=== PATIENT | female | born 1950 | race Caucasian/White ===

== ENCOUNTER → 2016-04-28 | Day surgery (SDC) | payer MEDICARE ==
[~2016-04-28] MED LIST: AEROBID7 GM; ALBUTEROL 0.5ML INH; ALBUTEROL MININEB NEB; ALBUTEROL17 GM; ALBUTEROL17 GM INH; BACTRIM DS TABL1 TAB PO; BENZONATATE PO; CIPRO PO; HYDROCODON-ACE1 EAC7; HYDROCODON-ACE1 EAC9 PO; KEPPRA500 M1 PO; KEPPRA500 M2 PO; LEVAQUIN PO; LEVOFLOXACIN500 MG PO; MEDROL DOSEPAK4 MG PO; MILK OF MAGNESIA PO; MOBIC15 MG PO; PHENERGAN W/CO120 ML PO; PREDNISONE PO; PROBIOTIC1 EAC1 PO; RESTORE PO; SPIRIVA18 MCG INH; SULFAMETHOXAZOL1 TA4 PO; ULTRAM PO; VICODIN 5/500 T1 TAB PO; ZITHROMAX PO; [UNRECOGNIZED DRUG - OTHER] PO
--- NOTE | ~2016-04-28 | OR ---
Unit #: [id number] #: [id number] Patient: SHUKRI REESE [id number] [address] [address] [id number] O MR#: [id number] NAME: SHUKRI REESE ROOM: Date of Procedure: 04/28/2016 Admission Date: 04/28/2016 Surgeon: Adriel Benites M.D. : 1950 Attending Physician: Adriel Benites M.D. Primary Care Physician: Jeremy Saucedo M.D. OPERATIVE REPORT PROCEDURE PERFORMED Colonoscopy to cecum with biopsies. INDICATIONS FOR PROCEDURE A 65-year-old female with family history of colon cancer in sister. She was Cologuard test positive also. MEDICATIONS Monitored anesthesia. POSTOPERATIVE FINDINGS 1. Flat mass behind the ileocecal valve in the cecal site. Multiple biopsies taken suspicious for malignancy. 2. Diverticulosis. 3. Internal hemorrhoids. 4. Rest of the colonic mucosa was normal. PLAN Follow up on the pathology report, most likely need a right hemicolectomy. DESCRIPTION OF PROCEDURE The patient was explained of the procedure, risks, and benefits along with risks and benefits of anesthesia. She was brought to the endoscopy room. Propofol anesthesia was given. Rectal exam was done, which was normal. Colonoscope was lubricated, passed up the rectum, advanced under direct vision all the way to the cecum. Cecum was identified by ileocecal valve and appendiceal orifice. There was a mass right behind the ileocecal valve not clearly visualized. Multiple biopsies taken from this area. The scope was then carefully withdrawn. Rest of the colonic mucosa was normal in appearance. I retroflexed in the rectum, small hemorrhoids seen. Scope was gently pulled out. She tolerated it well. Dictated by... Jeffry Sanchez/colin TD: 04/29/2016 02:05 JOB #: [id number] Unit #: [id number] #: [id number] Patient: SHUKRI REESE OPERATIVE REPORT X Adriel Benites MD X PROCEDURE OPERATIVE NOTE
== END | disposition home or self-care (01) ==
LOC: COPS 09:10
DX: Z12.11 Encounter for screening for malignant neoplasm of colon (principal); C18.0 Malignant neoplasm of cecum; K57.30 Diverticulosis of large intestine without perforation or abscess without bleeding; K64.8 Other hemorrhoids; Z80.0 Family history of malignant neoplasm of digestive organs; J44.9 Chronic obstructive pulmonary disease, unspecified; Z88.2 Allergy status to sulfonamides; Z88.1 Allergy status to other antibiotic agents
CPT/HCPCS: 88305

== ENCOUNTER → 2016-05-06 | Outpatient (CLI) | payer MEDICARE ==
--- NOTE | ~2016-05-06 | CR63 ---
[facility] A Service of [facility] RADIOLOGY TEXT RESULTS PATIENT: SHUKRI REESE LOCATION: [facility] : [birth year] UNIT #: [id number] AGE: [address]: Mayito Jaeger III, MD SEX: F ORDER DR: [id number] [facility] [address] [place], [place] [address] [id number] O MR#: [id number] Acc #: [id number] NAME: SHUKRI REESE : 1950 SEX: F STUDY DATE/TIME: 05/06/2016 12:22 UNIT: [facility] ROOM: STUDY DESCRIPTION: CR Chest 2 View Attending Physician: Mayito Jaeger III, M.D. Ordering Physician: Mayito Jaeger III, M.D. Primary Care Physician: Adriel Benites M.D. MEDICAL IMAGING REPORT This report is preliminary unless electronic signature is present EXAM Chest, 05/06/2016 HISTORY 65-year-old female patient with history of colon cancer. Patient for right colectomy. History of cough, short of breath. COMPARISON Portable chest, 02/11/2016 FINDINGS Two-view chest demonstrates normal stable heart size. Hilar structures and mediastinal contours are preserved. Small nodular opacity right upper lobe laterally appears unchanged. Prominent right cardiophrenic fat pad. Lungs appear otherwise expanded and clear. IMPRESSION No acute chest finding. Dictated by... Asad Cai M.D. THIS IS AN ELECTRONICALLY VERIFIED REPORT Asad Cai M.D. at 05/06/2016 3:02 PM Eli TD: 05/06/2016 13:22 JOB #: [id number] MEDICAL IMAGING REPORT Page 1 of 1 COPY
--- NOTE | ~2016-05-06 | EKG ---
PATIENT: SHUKRI REESE UNIT #: [id number] Ventricular Rate: 74 BPM Atrial Rate: 74 BPM P-R Interval: 160 ms QRS Duration: 70 ms Q-T Interval: 412 ms QTC Calculation(Bezet): 457 ms Calculated R Mounds: 40 degrees Calculated T Mounds: 17 degrees Diagnosis Line: Normal sinus rhythm Diagnosis Line: Low voltage QRS Diagnosis Line: Otherwise normal ECG Diagnosis Line: When compared with ECG of 04-JAN-2016 17:21, Diagnosis Line: No significant change was found Diagnosis Line: Confirmed by MALLORY WALKER MD ([id number]) on 05/07/2016 Diagnosis Line: 9:35:54 AM INTERPRETING MD: AARON FULTON
[2016-05-06 11:13] LABS: HEMATOCRIT 37.6 % (35.0-45.0); HEMOGLOBIN 12.4 gm/dL (12.0-16.0); MEAN CELL VOLUME 90.1 FL (83-96); MEAN CORPUSCULAR HEMOGLOBIN 29.7 PG (28-34); MEAN PLATELET VOLUME 7.2 FL (6.5-11.5); RED BLOOD COUNT 4.17 X10e (3.90-5.30); RED CELL DISTRIBUTION WIDTH 13.1 % (11.0-15.5); WHITE BLOOD COUNT 6.3 X10e3 (4.0-10.5)
[2016-05-06 11:54] LABS: BILIRUBIN,TOTAL 0.4 mg/dL (0.2-2.0); BUN/CREATININE RATIO 12.5; CALCIUM SERUM 9.4 mg/dL (8.4-10.2); CREATININE SERUM 0.8 mg/dL (0.6-1.4); GLOM FILT RATE Estimated 76.9 mL/min (>60); POTASSIUM 4.2 mmol/L (3.5-5.1)
== END | disposition home or self-care (01) ==
LOC: CAMB 10:42
PROVIDERS: Surgery
DX: Z01.818 Encounter for other preprocedural examination (principal); C18.9 Malignant neoplasm of colon, unspecified
CPT/HCPCS: 36415; 71020; 74177; 80053; 82378; 85027; 93005; Q9967

== ENCOUNTER 2016-05-11 06:38 | Inpatient (IN) | payer MEDICARE ==
--- NOTE | ~2016-05-11 | OR ---
Unit #: [id number] #: [id number] Patient: SHUKRI REESE [id number] [facility]. [place] [id number] [facility]. [place], [place] [address] [id number] Jose MR#: [id number] NAME: SHUKRI REESE ROOM: 47 Date of Procedure: 05/11/2016 Admission Date: 05/11/2016 Surgeon: Mayito Jaeger III, M.D. : 1950 Attending Physician: Mayito Jaeger III, M.D. Primary Care Physician: Adriel Benites M.D. OPERATIVE REPORT PREOPERATIVE DIAGNOSIS Cecal mass. POSTOPERATIVE DIAGNOSIS Cecal mass. PROCEDURE PERFORMED Ileocolic resection with anastomosis. AUTO LOCATOR Dr. Keaton Gutierrez. SPECIMEN Sent to pathology. ESTIMATED BLOOD LOSS Minimal. DRAINS None. COMPLICATIONS None apparent. INDICATIONS FOR PROCEDURE This is a 65-year-old lady, who underwent colonoscopy within the last couple of weeks and was found to have a cecal mass. She has a family history of colon cancer and she is here today for resection. DESCRIPTION OF PROCEDURE After consent was obtained, the patient was brought to the operating room and placed in the supine position. General anesthetic was administered. Her abdomen was prepped and draped in standard surgical fashion. I made a midline laparotomy and entered into the peritoneal cavity without any difficulty. She had a very mobile floppy cecum and I was able to easily identify the abnormality. There was a cecal mass and did not have any outward appearance of extension beyond the wall of the colon. I mobilized the right colon by scoring the lateral peritoneal attachments. Once this was done, I fired a EWA 75 stapler proximal to the ileocecal valve. I then had a generous margin distal to the tumor and fired a load across the upper mid ascending colon. I then took down all the mesenteric attachments with Chipley clamps and 0 silk ties. Once this specimen Unit #: [id number] #: [id number] Patient: SHUKRI REESE was removed, it was sent to pathology for permanent. I then performed a epwj-pv-tgpv stapled anastomosis with a EWA 75 stapler. There was some bleeding from the staple line internally. This was corrected with interrupted 3-0 Vicryl in a leverb-hh-lxwdy sutures. Once I had good hemostasis along the staple line, I then closed the common opening with interrupted 2-0 silk Gambee stitches with some intervening Lembert sutures. I then closed the common mesenteric defect with interrupted 2-0 silk qvbxds-pa-gakix suture. I irrigated and had excellent hemostasis. She also had some note of gallstones seen on her CT scan. I did evaluate the gallbladder and it appeared normal without any signs of inflammation. I did not see any other tumor deposits. I then closed the midline fascia with interrupted #1 Vicryl sutures. All needle, sponge, and instrument counts were correct x2 and hemostasis was excellent. The skin edges were reapproximated with stapling device. She tolerated the procedure without any problems and returned to recovery room in stable condition. Dictated by... Mayito Jaeger III, M.D. VCL/colin TD: 05/12/2016 07:36 JOB #: [id number] CC: Adriel Benites M.D. OPERATIVE REPORT Page 1 of 1 X Mayito Jaeger III, MD PROCEDURE OPERATIVE NOTE
--- NOTE | ~2016-05-11 | CO ---
Unit #: [id number] #: [id number] Patient: SHUKRI REESE [id number] [address] [address] [id number] I MR#: [id number] NAME: SHUKRI REESE ROOM: 476 Age: 65 Sex: F Admission Date: 05/11/2016 : 1950 Attending Physician: Mayito Jaeger III, M.D. Primary Care Physician: Adriel Benites M.D. CONSULTATION REPORT CHIEF COMPLAINT Colon cancer, [id number], stage IIIB and right lung nodule. HISTORY OF PRESENT ILLNESS This is a 65-year-old female who never had a colonoscopy. Her sister of colon cancer at the age of 65. Based on advice from a family member she had a colonoscopy. It was abnormal. Patient had a CT of the abdomen and pelvis on 05/06/2016. There is a 2.3 cm segmental thickening of the ileocecal junction. Patient had right hemicolectomy and resection of parts of the ileum. Pathology is positive for adenocarcinoma. The tumor was invading into the surface of the (1) peritoneum. It is T4. Lymph nodes 2/15 positive for metastatic disease. It is [id number], stage IIIB. She has recovered from the surgery, going home, has a sister at the bedside asking multiple questions about the prognosis and further treatment. Patient had the CT of the chest on February 26, 2016. There is about 1 x 1 cm right lung base nodule. REVIEW OF SYSTEMS CONSTITUTIONAL: No fever, no chills, no sweats, no weight loss. EYES: No visual symptoms. EARS, NOSE AND THROAT: There is no runny nose or sore throat or difficulty hearing. CARDIOVASCULAR: No chest pain. No shortness of breath. No palpitations. No orthopnea. No PND. RESPIRATORY: No cough. No wheezing. No hemoptysis. GASTROINTESTINAL: No nausea, vomiting, diarrhea, constipation, hematochezia or melena. GENITOURINARY: No urinary frequency, hesitancy or urgency. No blood in the urine. MUSCULOSKELETAL: No muscle or joint pain. NEUROLOGIC: No headache. No numbness or tingling. No weakness. No seizure. PSYCHIATRIC: No anxiety, depression or mood disturbance. ENDOCRINE: No excessive urination or thirst. DERMATOLOGIC: No rash or change in the skin. ALLERGIC/IMMUNOLOGIC: No symptoms. HEMATOLOGIC/LYMPHATIC: Denies any symptoms. PAST MEDICAL HISTORY COPD, seizure disorder, now stage IIIB colon cancer, right-sided, Unit #: [id number] #: [id number] Patient: SHUKRI REESE resected. ALLERGIES Sulfa. 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 PAST SURGICAL HISTORY Now right hemicolectomy, surgery around her right ear, possible hysterectomy she is not sure. She has three children. FAMILY HISTORY Father lung cancer. Mother had pancreatic cancer. Sister had colon cancer, of it age 65. PHYSICAL EXAMINATION GENERAL: Patient is comfortable. ECOG is 0. The patient is pleasant. VITAL SIGNS: Afebrile, O2 sat room air 94%, pulse 89, respiratory rate 18, blood pressure 105/64. HEENT: Moist mucosa. Pupils equally reactive to light. Extraocular muscles intact. Sclerae anicteric. No obvious bleeding from nasal mucosa or oral mucosa. Scalp normal. Hearing normal. NECK: No JVD. No lymphadenopathy. LYMPHATIC/HEMATOLOGIC: There is no palpable adenopathy in the neck, axilla or inguinal area. CARDIOVASCULAR: S1, S2. Regular rate and rhythm. No S3 or S4. RESPIRATORY: Chest symmetrical, normal. Clear to auscultation bilaterally. No wheezes, no rales, no rhonchi. No dullness to percussion. ABDOMEN/GASTROINTESTINAL: Abdomen is soft, nontender, nondistended. No hepatosplenomegaly. EXTREMITIES: There is no clubbing, no cyanosis, no edema. No varicose veins. NEUROLOGICAL: Patient is alert, awake and oriented x3. Cranial nerves II-XII are intact. Sensory grossly intact. Motor is 4/5 in all four extremities. Gait is normal. Station is normal. Language is normal. Memory is normal. DTRs +2 in all four extremities. MUSCULOSKELETAL: No joint swelling. No bony tenderness. No muscle tenderness. SKIN: No petechiae, no rash, no ecchymosis. PSYCHIATRIC: No anxiety. No delusions or hallucinations. There is no agitation. Eye contact is normal. Affect is appropriate. There is no flight of ideas. DIAGNOSTIC STUDIES LABORATORY: Her CEA level is 7.4, creatinine 0.5, LFTs are normal, WBC is 5.7, hemoglobin 12, MCV 90, platelets 174. ASSESSMENT AND PLAN This is a 65-year-old female with the following active issues: 1. Colon cancer: Patient has right hemicolectomy. Patient has a resection of the ileum. It is D9tK1P8. Lymph nodes 2/15 positive for metastatic disease. CEA level is 7.4. It is a stage IIIB disease. I will follow the patient as outpatient in two weeks. In the future I will do a PET scan. She needs adjuvant FOLFOX based chemotherapy. 2. Respiration: Patient has the right lung base nodule. I will get a PET scan for solitary nodule. She also needs PET scan for a stage Unit #: [id number] #: [id number] Patient: SHUKRI REESE IIIB colon cancer. She will qualify for PET scan. I will follow the patient as an outpatient. DISCUSSION I had an extensive discussion with patient and sister. Both of them had multiple questions about her diagnosis, further treatment and prognosis. They are also worried about the right base lung nodule because she has a significant history of smoking. Will discuss again as an outpatient. Dictated by... Jeffry Leonard/luis alberto TD: 05/14/2016 17:14 JOB #: [id number] CONSULTATION REPORT Page 1 of 1 X Jan Szymanski MD X CONSULTATION REPORT
--- NOTE | ~2016-05-11 | DS ---
Unit #: [id number] #: [id number] Patient: SHUKRI REESE [id number] [address] [place], [place] [address] [id number] MR#: [id number] NAME: SHUKRI REESE ROOM: 476 Age: 65 Sex: F Admission Date: 05/11/2016 : 1950 Discharge Date: 05/14/2016 Attending Physician: Mayito Jaeger III, M.D. Primary Care Physician: Adriel Benites M.D. DISCHARGE SUMMARY DIAGNOSIS Cecal cancer. PROCEDURE PERFORMED Right hemicolectomy. HOSPITAL COURSE The patient is a 65-year-old lady, who underwent right hemicolectomy. Postop course uncomplicated. DISPOSITION The patient will be discharged home in good condition. DISCHARGE INSTRUCTIONS She is to follow regular diet as tolerated. Activity levels were discussed. She is to follow up with Dr. Jaeger in 10 days. Oncology was consulted. Pathology revealed adenocarcinoma with extension through the serosa. DISCHARGE MEDICATIONS Atlantic 7.5 mg q.4 p.r.n. and regular home medications. Dictated by... Jeffry Caballero/colin TD: 05/15/2016 01:04 JOB #: [id number] DISCHARGE SUMMARY Page 1 of 1 X Mitch Garnica MD X DISCHARGE SUMMARY
[~2016-05-11 06:38] MED LIST changes: -HYDROCODON-ACE1 EAC9 PO; -MILK OF MAGNESIA PO; -PROBIOTIC1 EAC1 PO; -RESTORE PO
[2016-05-12 04:43] LABS: BASOPHIL% 0.5 % (0-2.5); DIFF IND NO; EOSINOPHIL# 0.1 X10e3 (0-0.7); EOSINOPHIL% 1.3 % (0.0-7.0); HEMATOCRIT 36.4 % (35.0-45.0); HEMOGLOBIN 12.1 gm/dL (12.0-16.0); LYMPHOCYTE# 0.6 X10e3 (1.0-3.5); MEAN CELL VOLUME 90.1 FL (83-96); MEAN CORPUSCULAR HGB CONC 33.3 g/dL (30-36); MEAN PLATELET VOLUME 8.2 FL (6.5-11.5); MONOCYTE# 0.6 X10e3 (0-1.0); MONOCYTE% 10.7 % (3.0-12.0); NEUTROPHIL# 4.3 X10e3 (1.5-7.1); NEUTROPHIL% 76.5 % (40-75); PLATELET COUNT 174 X10e3 (140-420); RED BLOOD COUNT 4.04 X10e (3.90-5.30); RED CELL DISTRIBUTION WIDTH 13.1 % (11.0-15.5); WHITE BLOOD COUNT 5.7 X10e3 (4.0-10.5)
[2016-05-12 05:00] LABS: BUN/CREATININE RATIO 8.88; CREATININE SERUM 0.9 mg/dL (0.6-1.4); GLOM FILT RATE Estimated 66.7 mL/min (>60); POTASSIUM 4.5 mmol/L (3.5-5.1)
[2016-05-14] MEDS ORDERED: HYDROCODON-ACE1 EAC9 PO (11:35)
[2016-05-14] MEDS ORDERED: MILK OF MAGNESIA PO (11:37)
[2016-07-20] MEDS ORDERED: PROBIOTIC1 EAC1 PO (12:20)
[2016-07-20] MEDS ORDERED: RESTORE PO (12:20)
== END 2016-05-14 13:00 | disposition home or self-care (01) | DRG 330 ==
LOC: CSUR 06:38 → CPACUOF 09:55 → C4C 11:10
PROVIDERS: Surgery
PROC: 0DTF0ZZ Resection of Right Large Intestine, Open Approach (ICD-10-PCS; principal; 2016-05-11 08:30)
DX: C18.0 Malignant neoplasm of cecum (principal); C77.2 Secondary and unspecified malignant neoplasm of intra-abdominal lymph nodes; J44.9 Chronic obstructive pulmonary disease, unspecified; G40.909 Epilepsy, unspecified, not intractable, without status epilepticus; Z88.1 Allergy status to other antibiotic agents; Z88.2 Allergy status to sulfonamides; Z82.49 Family history of ischemic heart disease and other diseases of the circulatory system; Z80.0 Family history of malignant neoplasm of digestive organs; F17.210 Nicotine dependence, cigarettes, uncomplicated; R11.0 Nausea; R91.1 Solitary pulmonary nodule
CPT/HCPCS: 80048; 85025; 88309; 88341; 88342; 94640; 94664; 94760; 97110; 97116; 97161; 97166; G8978-GP; G8979-GP; G8987-GO; G8988-GO; G8989-GO; J1650; J1885; J2250; J2270; J2405; J2550; J2710; J3010; J3370

== ENCOUNTER → 2016-05-19 | Outpatient (CLI) | payer MEDICARE ==
[~2016-05-19] MED LIST changes: +HYDROCODON-ACE1 EAC9 PO; +MILK OF MAGNESIA PO; +PROBIOTIC1 EAC1 PO; +RESTORE PO
--- NOTE | ~2016-05-19 | CR4 ---
[facility] A Service of [facility] RADIOLOGY TEXT RESULTS PATIENT: SHUKRI REESE LOCATION: [facility] : 49 UNIT #: [id number] AGE: [address]: Keaton Gutierrez MD SEX: F ORDER DR: [id number] [facility] [address] [place], [place] [address] [id number] O MR#: [id number] Acc #: [id number] NAME: SHUKRI REESE : 1950 SEX: F STUDY DATE/TIME: 05/19/2016 14:44 UNIT: [facility] ROOM: STUDY DESCRIPTION: CR Abdomen Flat Upright or Dec Attending Physician: Keaton Gutierrez M.D. Referring Physician: Keaton Gutierrez M.D. Ordering Physician: Keaton Gutierrez M.D. Primary Care Physician: Jeremy Saucedo M.D. MEDICAL IMAGING REPORT This report is preliminary unless electronic signature is present EXAM Flat and upright abdomen, 3 views. DATE OF EXAM 05/19/2016 HISTORY SUPPLIED Abdominal pain, vomiting since yesterday. FINDINGS 3 views are submitted. The examination shows evidence of recent surgical intervention in the abdomen. The gas pattern is nonspecific. There is gas and fecal residue through the rectal vault. No dilated loops of bowel are seen. CONCLUSION Postop changes in the abdomen. Unremarkable bowel gas pattern. Dictated by... Mitch Fried M.D. THIS IS AN ELECTRONICALLY VERIFIED REPORT Mitch Fried M.D. at 05/20/2016 11:59 AM Huyen TD: 05/19/2016 21:31 JOB #: [id number] MEDICAL IMAGING REPORT Page 1 of 1 COPY
[2016-05-19 15:17] LABS: URINE APPEARANCE CLEAR; URINE BILIRUBIN NEG (NEG); URINE BLOOD NEG (NEG); URINE COLOR DK YELLOW; URINE GLUCOSE NEG (NEG); URINE KETONE TRACE (NEG); URINE LEUKOCYTE ESTERASE 1+ (NEG); URINE NITRATE NEG (NEG); URINE PH 5.5 (5-8); URINE PROTEIN NEG (NEG); URINE SPECIFIC GRAVITY 1.026 (1.003-1.035)
[2016-05-19 15:19] LABS: HEMATOCRIT 37.3 % (35.0-45.0); HEMOGLOBIN 12.7 gm/dL (12.0-16.0); MEAN CELL VOLUME 88.4 FL (83-96); MEAN CORPUSCULAR HEMOGLOBIN 30.1 PG (28-34); MEAN CORPUSCULAR HGB CONC 34.1 g/dL (30-36); MEAN PLATELET VOLUME 7.4 FL (6.5-11.5); RED BLOOD COUNT 4.22 X10e (3.90-5.30); RED CELL DISTRIBUTION WIDTH 12.9 % (11.0-15.5); WHITE BLOOD COUNT 8.8 X10e3 (4.0-10.5)
[2016-05-19 15:21] LABS: URBCS1 AUWI 0-2 /[HPF] (0-2); URINE BACTERIA AUWI NEG (NEGATIVE); URINE SQUAMOUS EPITHELIAL CELL OCC /[HPF]
[2016-05-19 15:28] LABS: URINE SOURCE CLEAN CATCH
[2016-05-19 15:42] LABS: ALBUMIN SERUM 3.8 g/dL (3.5-5.0); BILIRUBIN,TOTAL 0.6 mg/dL (0.2-2.0); BUN/CREATININE RATIO 18.88; CALCIUM SERUM 9.2 mg/dL (8.4-10.2); CREATININE SERUM 0.9 mg/dL (0.6-1.4); GLOM FILT RATE Estimated 66.7 mL/min (>60); POTASSIUM 4.5 mmol/L (3.5-5.1); PROTEIN TOTAL SERUM 6.8 g/dL (6.0-8.3)
== END | disposition home or self-care (01) ==
LOC: CRAD 14:13
PROVIDERS: Specialist
DX: R11.10 Vomiting, unspecified (principal); Z98.890 Other specified postprocedural states
CPT/HCPCS: 36415; 74020; 80053; 81003; 85027

== ENCOUNTER → 2016-06-15 | Outpatient (CLI) | payer MEDICARE ==
--- NOTE | ~2016-06-15 | XA91 ---
[facility] A Service of [facility] RADIOLOGY TEXT RESULTS PATIENT: SHUKRI REESE LOCATION: [facility] : 48 UNIT #: [id number] AGE: [address]: Jan Szymanski MD SEX: F ORDER DR: [id number] [facility] [address] [place], [place] [address] [id number] O MR#: [id number] Acc #: [id number] NAME: SHUKRI REESE : 1950 SEX: F STUDY DATE/TIME: 06/15/2016 10:30 UNIT: [facility] ROOM: STUDY DESCRIPTION: XA CVC Tunneled W Port Attending Physician: Jan Szymanski M.D. Ordering Physician: Jan Szymanski M.D. Primary Care Physician: Jeremy Saucedo M.D. MEDICAL IMAGING REPORT This report is preliminary unless electronic signature is present EXAM Ultrasound-guided MediPort placement INDICATION Need for IV access in a patient with a history of colon cancer. Patient was diagnosed in April 2016 and has undergone right hemicolectomy May 11, 2016. PROCEDURE The procedure was explained to the patient including risks, benefits, potential complications, potential for alternative forms of treatment. Informed consent was obtained. Prior to initiating the procedure, a formal time-out procedure was performed. Using all elements of maximal sterile barrier technique including hand hygiene, caps, sterile gowns, gloves and masks, the right neck was prepped with 2% Chlorhexidine for cutaneous antisepsis and covered with a large sterile sheet. Real-time sterile ultrasound guidance was used to localize the right internal jugular vein which was found to be patent and compressible. A hard copy ultrasound image was obtained. After local anesthesia with 1% Xylocaine, the vein was punctured using real-time sterile ultrasound guidance. An 0.018 guidewire was advanced into the superior vena cava under fluoroscopic guidance. Micropuncture sheath was placed and a J-wire was advanced into the inferior vena cava. The skin and subcutaneous tissues of the right anterolateral chest wall were anesthetized with buffered Lidocaine and Lidocaine with epinephrine. A skin incision was made. Port pocket was created using a combination of blunt and sharp dissection. Port was seated within the pocket and secured using 2 3-0 Vicryl sutures. Catheter was then tunneled up through the right anterolateral chest wall to the insertion site at the neck. Peel-away sheath was advanced over the wire. Catheter was measured and trimmed and was advanced through the peel-away sheath and positioned within the superior vena cava. Following placement of the catheter, [facility] Service of [facility] RADIOLOGY TEXT RESULTS PATIENT: SHUKRI REESE LOCATION: [facility] : [birth year] UNIT #: [id number] AGE: [address]: Jan Szymanski MD SEX: F ORDER DR: flushed and aspirated easily. Its position was confirmed with a radiographic image. Deep layer of the port pocket was closed using interrupted 3-0 Vicryl sutures and a running 4-0 Monocryl suture was used to close the skin. A single 4-0 Monocryl suture was used to close the insertion site at the neck. Dermabond was applied to both wounds to act as a dressing. Patient tolerated the procedure well and there were no immediate complications. She did receive conscious sedation consisting of 3 mg of Versed and 150 mcg of Fentanyl. Continuous monitoring was provided for a total of 50 minutes by the IVR nurse. Total fluoroscopy time was 0.1 minutes. AK was 1 mGy. IMPRESSION Technically successful placement of a right internal jugular vein MediPort which terminates within the superior vena cava. This catheter is ready for immediate use. Ultrasound and fluoroscopy were used during placement of the catheter and permanent images were saved. Dictated by... Yvonne Drew M.D. THIS IS AN ELECTRONICALLY VERIFIED REPORT Yvonne Drew M.D. at 06/18/2016 8:19 AM LILY/sara TD: 06/16/2016 11:18 JOB #: [id number] MEDICAL IMAGING REPORT Page 1 of 1 COPY
[2016-06-15 09:15] LABS: HEMATOCRIT 37.5 % (35.0-45.0); HEMOGLOBIN 12.4 gm/dL (12.0-16.0); MEAN CELL VOLUME 89.4 FL (83-96); MEAN CORPUSCULAR HEMOGLOBIN 29.5 PG (28-34); MEAN PLATELET VOLUME 7.9 FL (6.5-11.5); RED BLOOD COUNT 4.19 X10e (3.90-5.30); RED CELL DISTRIBUTION WIDTH 13.4 % (11.0-15.5); WHITE BLOOD COUNT 6.1 X10e3 (4.0-10.5)
[2016-06-15 09:28] LABS: INR 0.9; PARTIAL THROMBOPLASTIN TIME 24.8 SECONDS (23.5-31.3); PROTHROMBIN TIME (PATIENT) 9.9 SECONDS (9.6-11.5)
== END | disposition home or self-care (01) ==
LOC: CIVR 08:17
PROVIDERS: Internal Medicine Hematology
PROC: 02HV33Z Insertion of Infusion Device into Superior Vena Cava, Percutaneous Approach (ICD-10-PCS; principal; 2016-06-15)
DX: Z45.2 Encounter for adjustment and management of vascular access device (principal); C18.2 Malignant neoplasm of ascending colon; C77.5 Secondary and unspecified malignant neoplasm of intrapelvic lymph nodes; R91.1 Solitary pulmonary nodule; J44.9 Chronic obstructive pulmonary disease, unspecified; Z80.0 Family history of malignant neoplasm of digestive organs; Z88.2 Allergy status to sulfonamides; Z88.1 Allergy status to other antibiotic agents
CPT/HCPCS: 36415; 76937; 77001; 85027; 85610; 85730; C1788; C1894; J0690; J1642; J2250; J3010

== ENCOUNTER → 2016-07-21 | Outpatient (CLI) | payer MEDICARE ==
--- NOTE | ~2016-07-21 | XA80 ---
[facility] A Service of [facility] RADIOLOGY TEXT RESULTS PATIENT: SHUKRI REESE LOCATION: [facility] : [birth year] UNIT #: [id number] AGE: [address]: Jan Szymanski MD SEX: F ORDER DR: [id number] [facility] [address] [place], [place] [address] [id number] O MR#: [id number] Acc #: [id number] NAME: SHUKRI REESE : 1950 SEX: F STUDY DATE/TIME: 07/21/2016 8:57 UNIT: [facility] ROOM: STUDY DESCRIPTION: XA CVC Remove Tunneled Cath W Attending Physician: Jan Szymanski M.D. Ordering Physician: Jan Szymanski M.D. Primary Care Physician: Jeremy Saucedo M.D. MEDICAL IMAGING REPORT This report is preliminary unless electronic signature is present EXAM Port-A-Cath removal 07/21/2016, fluoroscopic guidance CLINICAL HISTORY Right IJ Port-A-Cath, treatment regimen completed. Removal requested. PROCEDURE Informed consent was obtained. Fentanyl and Versed were used for IV conscious sedation with hemodynamic monitoring provided by the nursing staff throughout the procedure, total sedation 30 minutes. Using full standard sterile technique including sterile preparation, barrier draping, sterile gowns, gloves as well as caps and masks, after local anesthesia, a small incision was made over the Port-A-Cath pocket and the hub was removed. Hemostasis was achieved and the pocket was closed with interrupted 3-0 Vicryl mattress suture and running subcuticular 4-0 Monocryl suture and N-butyl cyanoacrylate glue. Fluoroscopic image confirmed total catheter removal. There were no complications and the patient tolerated the procedure well. Total exposure 2 spot images and 0.1 minutes of fluoroscopy. IMPRESSION Successful fluoroscopically guided removal of a right IJ Port-A-Cath without complication. Dictated by... Gus Castellon M.D. THIS IS AN ELECTRONICALLY VERIFIED REPORT Gus Castellon M.D. at 07/23/2016 2:12 PM TEV/mjs STS. [facility] A Service of [facility] RADIOLOGY TEXT RESULTS PATIENT: SHUKRI REESE LOCATION: [facility] : 49 UNIT #: [id number] AGE: [address]: Jan Szymanski MD SEX: F ORDER DR: TD: 07/23/2016 07:10 JOB #: [id number] MEDICAL IMAGING REPORT Page 1 of 1 COPY
[2016-07-21 08:34] LABS: HEMOGLOBIN 13.4 gm/dL (12.0-16.0); MEAN CELL VOLUME 89.2 FL (83-96); MEAN CORPUSCULAR HEMOGLOBIN 29.7 PG (28-34); MEAN CORPUSCULAR HGB CONC 33.3 g/dL (30-36); MEAN PLATELET VOLUME 7.7 FL (6.5-11.5); RED BLOOD COUNT 4.49 X10e (3.90-5.30); RED CELL DISTRIBUTION WIDTH 15.7 % (11.0-15.5); WHITE BLOOD COUNT 6.2 X10e3 (4.0-10.5)
[2016-07-21 08:50] LABS: PARTIAL THROMBOPLASTIN TIME 23.6 SECONDS (23.5-31.3)
== END | disposition home or self-care (01) ==
LOC: CIVR 08:08
PROVIDERS: Internal Medicine Hematology
PROC: 0JPT3XZ Removal of Tunneled Vascular Access Device from Trunk Subcutaneous Tissue and Fascia, Percutaneous Approach (ICD-10-PCS; principal; 2016-07-21)
DX: Z45.2 Encounter for adjustment and management of vascular access device (principal); C18.2 Malignant neoplasm of ascending colon; C77.2 Secondary and unspecified malignant neoplasm of intra-abdominal lymph nodes; J44.9 Chronic obstructive pulmonary disease, unspecified; R91.1 Solitary pulmonary nodule; L29.9 Pruritus, unspecified; Z79.899 Other long term (current) drug therapy; Z87.09 Personal history of other diseases of the respiratory system; Z87.898 Personal history of other specified conditions; Z80.0 Family history of malignant neoplasm of digestive organs; Z88.2 Allergy status to sulfonamides; Z88.1 Allergy status to other antibiotic agents
CPT/HCPCS: 36415; 77001; 85027; 85610; 85730; J2250; J3010

== ENCOUNTER → 2016-10-26 | Outpatient (CLI) | payer MEDICARE ==
--- NOTE | ~2016-10-26 | CR181 ---
[facility] A Service of [facility] RADIOLOGY TEXT RESULTS PATIENT: SHUKRI REESE LOCATION: [facility] : 49 UNIT #: [id number] AGE: [address]: MARLENE KOVACS APRN SEX: F ORDER DR: [id number] [facility] [address] [place], [place] [address] [id number] O MR#: [id number] Acc #: [id number] NAME: SHUKRI REESE. : 1950 SEX: F STUDY DATE/TIME: 10/26/2016 20:14 UNIT: [facility] ROOM: STUDY DESCRIPTION: CR Lumbar Spine 2 or 3 Views Attending Physician: Marlene Kovacs Aprn Referring Physician: Marlene Kovacs Aprn Ordering Physician: Marlene Kovacs Aprn Primary Care Physician: Jeremy Saucedo M.D. MEDICAL IMAGING REPORT This report is preliminary unless electronic signature is present EXAM Lumbar spine, 10/26/2016. HISTORY 66-year-old female complaining of 4-day history of low back pain. No reported acute injury. History of colon cancer diagnosed earlier this year. TECHNIQUE Three-view lumbar spine series. COMPARISON CT abdomen/pelvis, 05/06/2016. FINDINGS No fracture or other acute osseous abnormality is demonstrated. There is no radiographic evidence of skeletal metastatic disease. Moderate degenerative disc space changes throughout the lumbar spine including disc space narrowing and mild vertebral osteophyte formation. Pukf-qv-lnpokptv degenerative facet arthropathy throughout the lower lumbar spine. Lumbar vertebral alignment is normal. Mild thoracolumbar spinal curvature. IMPRESSION 1. No acute osseous abnormality. No evidence of skeletal metastatic disease. 2. Moderate multilevel degenerative disc space changes throughout the lumbar spine. Lower lumbar degenerative facet arthropathy. Dictated by... Rico Prince M.D. [facility] A Service [facility] RADIOLOGY TEXT RESULTS PATIENT: SHUKRI REESE LOCATION: [facility] : 49 UNIT #: [id number] AGE: [address]: MARLENE KOVACS APRN SEX: F ORDER DR: THIS IS AN ELECTRONICALLY VERIFIED REPORT Rico Prince M.D. at 10/27/2016 5:14 PM Asa TD: 10/27/2016 13:14 JOB #: [id number] MEDICAL IMAGING REPORT Page 1 of 1 COPY
== END | disposition home or self-care (01) ==
LOC: CRAD 11:38
DX: M54.9 Dorsalgia, unspecified (principal); M51.36 Other intervertebral disc degeneration, lumbar region; M47.896 Other spondylosis, lumbar region
CPT/HCPCS: 72100

== ENCOUNTER → 2016-11-01 | Outpatient (CLI) | payer MEDICARE ==
--- NOTE | ~2016-11-01 | CT2 ---
[facility] A Service of [facility] RADIOLOGY TEXT RESULTS PATIENT: SHUKRI REESE LOCATION: [facility] : 48 UNIT #: [id number] AGE: [address]: Jan Szymanski MD SEX: F ORDER DR: [id number] [facility] [address] [place], [place] [address] [id number] O MR#: [id number] Acc #: [id number] NAME: SHUKRI REESE. : 1950 SEX: F STUDY DATE/TIME: 11/01/2016 9:03 UNIT: [facility] ROOM: STUDY DESCRIPTION: CT Abd and Pelv W Cont Attending Physician: Jan Szymanski M.D. Referring Physician: Jan Szymanski M.D. Ordering Physician: Jan Szymanski M.D. Primary Care Physician: Jeremy Saucedo M.D. MEDICAL IMAGING REPORT This report is preliminary unless electronic signature is present EXAM Abdomen and pelvis CT with contrast 11/01/16. INDICATIONS 66-year-old female with history of colon cancer, observation for metastatic disease and active malignancy. Flank pain on the left last week. Now swelling in the left lower leg and ankle. History of colonic surgery and . Status post chemotherapy. TECHNIQUE Contrast enhanced CT of the abdomen and pelvis was performed. This CT exam was performed with one or more of the following radiation dose reduction techniques: automatic exposure control, adjustment of mA and/or kV according to patient size, and iterative reconstruction. COMPARISON Correlation is made with PET CT 05/31/16. FINDINGS CT abdomen: Please see the separately dictated CT chest same date for further details regarding chest findings. Previously documented 8 mm nodule in the right lower lobe has no correlate today. There is emphysema. Small hiatal hernia. Aorta demonstrates atherosclerotic change. No aneurysm or dissection. Spleen, adrenal glands and pancreas are unremarkable. There is uncomplicated cholelithiasis and fatty infiltration of the liver. There is a tiny 3 mm low-attenuation lesion in the lower pole left kidney too small to characterize but likely a benign tiny cyst. Kidneys otherwise unremarkable. CT pelvis: Uterus surgically absent. Bladder unremarkable. No drainable STS. [facility] A Service of [facility] RADIOLOGY TEXT RESULTS PATIENT: SHUKRI REESE LOCATION: [facility] : 49 UNIT #: [id number] AGE: [address]: Jan Szymanski MD SEX: F ORDER DR: fluid collection in the pelvis. Bowel demonstrates no obstruction or inflammatory change. The patient is status post ileocolic anastomoses in the right mid abdomen. There is no inguinal adenopathy or fluid collection. No suspicious bone lesion. Degenerative change in the thoracolumbar spine. IMPRESSION 1. No new findings to suggest metastatic disease in the abdomen or pelvis. 2. Fatty infiltration of the liver. 3. Uncomplicated cholelithiasis. 4. Too small to characterize, but statistically benign 3 mm lesion in the lower pole left kidney likely a cyst. 5. Postop changes as described. 6. No suspicious bone lesion. Dictated by... Kendall Cortez M.D. THIS IS AN ELECTRONICALLY VERIFIED REPORT Kendall Cortez M.D. at 11/01/2016 4:49 PM Peter TD: 11/01/2016 16:33 JOB #: [id number] MEDICAL IMAGING REPORT Page 1 of 1 COPY
--- NOTE | ~2016-11-01 | CT55 ---
[facility] A Service of [facility] RADIOLOGY TEXT RESULTS PATIENT: SHUKRI REESE LOCATION: [facility] : 49 UNIT #: [id number] AGE: [address]: Jan Szymanski MD SEX: F ORDER DR: [id number] [facility] [address] [place], [place] [address] [id number] O MR#: [id number] Acc #: [id number] NAME: SHUKRI REESE. : 1950 SEX: F STUDY DATE/TIME: 11/01/2016 9:03 UNIT: [facility] ROOM: STUDY DESCRIPTION: CT Chest W Con Attending Physician: Jan Szymanski M.D. Referring Physician: Jan Szymanski M.D. Ordering Physician: Jan Szymanski M.D. Primary Care Physician: Jeremy Saucedo M.D. MEDICAL IMAGING REPORT This report is preliminary unless electronic signature is present EXAM Chest CT with contrast 11/01/2016 INDICATIONS 66-year-old female with history of colon cancer. Observation for metastatic disease. Active malignancy. Flank pain on the left last week. Swelling in the left lower leg and ankle currently. Status post chemotherapy. TECHNIQUE Contrast enhanced CT of the chest was performed. This CT exam was performed with one or more of the following radiation dose reduction techniques: automatic exposure control, adjustment of mA and/or kV according to patient size, and iterative reconstruction. COMPARISON STUDIES Correlation is made with PET/CT 05/31/2016. FINDINGS CT CHEST: Lungs are emphysematous. No new suspicious pulmonary nodule. No pericardial or pleural effusion. 11 mm right thyroid lobe lesion that would be better characterized with ultrasound if not previously evaluated. Tiny reactive-appearing AP window node unchanged. Additional tiny mediastinal nodes stable. No new suspicious adenopathy. Aorta unremarkable. Small hiatal hernia. Included upper abdomen unremarkable with the exception of uncomplicated cholelithiasis and mild fatty infiltration of the liver. Please see the separately dictated abdomen and pelvis CT for further details. No suspicious bone lesion. [facility] A Service of [facility] RADIOLOGY TEXT RESULTS PATIENT: SHUKRI REESE LOCATION: [facility] : 48 UNIT #: [id number] AGE: [address]: Jan Szymanski MD SEX: F ORDER DR: IMPRESSION 1. No new findings to suggest metastatic disease in the chest. 2. Emphysema. 3. Fatty infiltration of the liver and incidental uncomplicated cholelithiasis. 4. 11 mm right thyroid lobe nodule. This could be better assessed with ultrasound if not previously performed. 5. Previously documented 8 mm nodule in the right lung base has no correlate on today's examination. Dictated by... Kendall Cortez M.D. THIS IS AN ELECTRONICALLY VERIFIED REPORT Kendall Cortez M.D. at 11/01/2016 4:49 PM Ivan TD: 11/01/2016 16:15 JOB #: [id number] MEDICAL IMAGING REPORT Page 1 of 1 COPY
[2016-11-01 09:00] LABS: POC - CREATININE 1.03 mg/dL (0.44-1.03)
== END | disposition home or self-care (01) ==
LOC: CCAT 08:23
PROVIDERS: Internal Medicine Hematology
DX: C18.2 Malignant neoplasm of ascending colon (principal); K80.20 Calculus of gallbladder without cholecystitis without obstruction; K76.0 Fatty (change of) liver, not elsewhere classified; N28.89 Other specified disorders of kidney and ureter; E04.1 Nontoxic single thyroid nodule; J43.9 Emphysema, unspecified; R91.1 Solitary pulmonary nodule; Z98.890 Other specified postprocedural states
CPT/HCPCS: 71260; 74177; 82565; Q9967